=== PATIENT | female | born 1995 | race Caucasian/White ===

== ENCOUNTER 2017-06-18 11:16 | Emergency (ER) | payer MEDICAID ==
[~2017-06-18] VITALS: Ht 175.3 cm; Wt 59.3 kg
[~2017-06-18 11:16] MED LIST: ALBU2.5V11 IH; ALBU8.5H5 INH; AZIT500T5 PO; FLUT1DIS3 INH; LEVO500T47 PO; MONT10TA6 PO; PRED10TA PO; PRED20TA PO
[2017-06-18] MEDS ORDERED: SODIUM CHLORIDE 0.9% 1,000 ML IV ONE (11:48)
[2017-06-18] MEDS ORDERED: SODIUM CHLORIDE 0.9% 1,000ML IVBOLUS ONE (12:00)
[2017-06-18] MEDS ORDERED: SODIUM CHLORIDE FLUSH 10ML SYR IVF ONE (12:00)
[2017-06-18] MEDS ORDERED: ONDANSETRON 2MG/ML, 2ML IVPush ONE (12:00)
[2017-06-18] MEDS ORDERED: ONDANSETRON 2MG/ML, 2ML ONE (12:03)
[2017-06-18 12:09] LABS: HEMATOCRIT 47.1 % (34.6-47.8); WHITE BLOOD COUNT 7.5 x10^3/uL (4.5-13.2)
[2017-06-18 12:19] LABS: ASPARTATE AMINO TRANSFERASE 12 U/L (15-37); BLOOD UREA NITROGEN 16 mg/dL (7-18)
[2017-06-18 13:59] VITALS: BP 102/58
== END 2017-06-18 14:05 | disposition home or self-care (01) ==
LOC: ED 12:37
DX: R11.2 Nausea with vomiting, unspecified (principal); K21.9 Gastro-esophageal reflux disease without esophagitis; J45.909 Unspecified asthma, uncomplicated; Z90.49 Acquired absence of other specified parts of digestive tract
CPT/HCPCS: 36415; 71020; 80053; 81003; 83605; 83690; 84703; 85025; 96361; 96374; 99285; J2405; J7030

== ENCOUNTER 2017-06-24 16:09 | Emergency (ER) | payer MEDICAID ==
[~2017-06-24] VITALS: Ht 175.3 cm; Wt 61.4 kg
[2017-06-24] MEDS ORDERED: ONDANSETRON 2MG/ML, 2ML IVPush ONE (16:30)
[2017-06-24] MEDS ORDERED: SODIUM CHLORIDE FLUSH 10ML SYR IVF ONE (16:30)
[2017-06-24] MEDS ORDERED: SODIUM CHLORIDE 0.9% 1,000ML IVBOLUS ONE (16:30)
[2017-06-24] MEDS ORDERED: FAMOTIDINE 20 MG/2 ML IVP ONE (16:30)
[2017-06-24] MEDS ORDERED: ONDANSETRON 2MG/ML, 2ML ONE (16:34)
[2017-06-24] MEDS ORDERED: FAMOTIDINE 20 MG/2 ML ONE (16:34)
[2017-06-24 16:42] LABS: PATH.CAST-FLAG NOT PRESENT; SPERM-FLAG NOT PRESENT; SRC-FLAG NOT PRESENT; XTAL-FLAG NOT PRESENT; YLC-FLAG NOT PRESENT
[2017-06-24 16:54] LABS: HEMATOCRIT 47.1 % (34.6-47.8); HEMOGLOBIN 15.8 g/dL (11.7-16.4); WHITE BLOOD COUNT 10.1 x10^3/uL (4.5-13.2)
[2017-06-24 17:05] LABS: BLOOD UREA NITROGEN 9 mg/dL (7-18)
[2017-06-24] MEDS ORDERED: ALBUTEROL SULFATE 2.5 MG/3 ML ONE ×2 (17:44→17:48)
[2017-06-24 17:47] VITALS: BP 110/62
[2017-06-24] MEDS: ALBUTEROL SULFATE 2.5 MG/3 ML NPPB SCH ×2 (17:51→17:59)
== END 2017-06-24 19:01 | disposition home or self-care (01) ==
LOC: ED 16:26
DX: J20.9 Acute bronchitis, unspecified (principal); J45.909 Unspecified asthma, uncomplicated; K21.9 Gastro-esophageal reflux disease without esophagitis; Z90.49 Acquired absence of other specified parts of digestive tract
CPT/HCPCS: 36415; 71010; 80048; 81001; 82040; 84703; 85025; 87086; 94640; 96361; 96374; 96375; 99285; J2405; J7030; J7613; S0028

== ENCOUNTER 2017-08-18 19:34 | Emergency (ER) | payer MEDICAID ==
[~2017-08-18] VITALS: Ht 172.7 cm; Wt 60.2 kg
[2017-08-18 19:36] VITALS: BP 124/80
[2017-08-18] MEDS ORDERED: DIAZEPAM 5 MG TABLET ONE (20:14)
[2017-08-18] MEDS ORDERED: KETOROLAC 30 MG/1 ML ONE (20:14)
[2017-08-18] MEDS ORDERED: DIAZEPAM 5 MG TABLET PO ONE (20:30)
[2017-08-18] MEDS ORDERED: KETOROLAC 30 MG/1 ML IM ONE (20:30)
== END 2017-08-18 20:38 | disposition home or self-care (01) ==
LOC: ED 20:00
DX: S39.012A Strain of muscle, fascia and tendon of lower back, initial encounter (principal); K21.9 Gastro-esophageal reflux disease without esophagitis; J45.909 Unspecified asthma, uncomplicated; Z90.49 Acquired absence of other specified parts of digestive tract
CPT/HCPCS: 96372; 99283; J1885

== ENCOUNTER 2017-10-03 06:48 | Emergency (ER) | payer MEDICAID ==
[~2017-10-03] VITALS: Ht 175.3 cm; Wt 58.6 kg
[2017-10-03] MEDS ORDERED: ALBUTEROL/IPRATROPIUM 2.5MG/0.5MG, 3 ML NPPB ONE (07:30)
[2017-10-03] MEDS ORDERED: DEXAMETHASONE 4 MG TABLET PO ONE (07:30)
[2017-10-03] MEDS ORDERED: ALBUTEROL/IPRATROPIUM 2.5MG/0.5MG, 3 ML ONE (07:31)
[2017-10-03] MEDS ORDERED: DEXAMETHASONE 4 MG TABLET ONE (07:46)
[2017-10-03 08:14] VITALS: BP 122/66
== END 2017-10-03 08:20 | disposition home or self-care (01) ==
LOC: ED 07:08
DX: J45.41 Moderate persistent asthma with (acute) exacerbation (principal); K21.9 Gastro-esophageal reflux disease without esophagitis; J45.909 Unspecified asthma, uncomplicated; K29.70 Gastritis, unspecified, without bleeding
CPT/HCPCS: 71046; 93005; 94640; 99284; J7620

== ENCOUNTER 2017-11-01 03:52 | Emergency (ER) | payer MEDICAID ==
[~2017-11-01] VITALS: Ht 175.3 cm; Wt 62.4 kg
[2017-11-01 03:54] VITALS: BP 112/68
[2017-11-01] MEDS ORDERED: HYDROcodone/APAP 5/325 TABLET PO ONE (04:30)
[2017-11-01] MEDS ORDERED: KETOROLAC 30 MG/1 ML IM ONE (04:30)
[2017-11-01] MEDS ORDERED: HYDROcodone/APAP 5/325 TABLET ONE (04:31)
[2017-11-01] MEDS ORDERED: KETOROLAC 30 MG/1 ML ONE (04:31)
== END 2017-11-01 05:04 | disposition home or self-care (01) ==
LOC: ED 04:30
DX: M54.41 Lumbago with sciatica, right side (principal); K21.9 Gastro-esophageal reflux disease without esophagitis; Z88.8 Allergy status to other drugs, medicaments and biological substances
CPT/HCPCS: 96372; 99283; J1885

== ENCOUNTER 2017-11-09 07:54 | Emergency (ER) | payer MEDICAID ==
[~2017-11-09] VITALS: Ht 175.3 cm; Wt 52.1 kg
[2017-11-09 08:31] LABS: BASOPHILS # (AUTO) 0.03 x10^3/uL (0-0.3); BASOPHILS % (AUTO) 1 % (0-1); EOSINOPHILS % (AUTO) 3 % (1-7); LYMPHOCYTES % (AUTO) 32 % (22-44); MD NO; MEAN CORPUSCULAR HEMOGLOBIN 30.6 pg (27.0-34.8); MEAN CORPUSCULAR HGB CONC 33.6 g/dL (32.4-35.8); MEAN CORPUSCULAR VOLUME 91.2 fL (80-100); MEAN PLATELET VOLUME 7.3 fL (7.4-10.4); MONOCYTES # (AUTO) 0.35 x10^3/uL (0-1.4); MONOCYTES % (AUTO) 5 % (2-9); NEUTROPHILS # (AUTO) 3.92 x10^3/uL (1.8-8.0); NEUTROPHILS % (AUTO) 59 % (42-75); PLATELET COUNT 317 x10^3/uL (130-400); RED BLOOD COUNT 4.41 x10^6/uL (3.82-5.3); RED CELL DISTRIBUTION WIDTH 12.8 % (9.6-15.2)
[2017-11-09 08:42] LABS: MICROSCOPIC AUTO
[2017-11-09 08:51] LABS: CULTURE INDICATED? YES
[2017-11-09 08:56] VITALS: BP 117/81
== END 2017-11-09 09:12 | disposition home or self-care (01) ==
LOC: ED 09:00
DX: N39.0 Urinary tract infection, site not specified (principal); J45.909 Unspecified asthma, uncomplicated; Z90.49 Acquired absence of other specified parts of digestive tract
CPT/HCPCS: 36415; 76830; 81001; 84702; 85025; 87086; 99285

== ENCOUNTER 2018-01-09 20:51 | Emergency (ER) | payer MEDICAID ==
[~2018-01-09] VITALS: Ht 172.7 cm; Wt 65.0 kg
[2018-01-09 21:18] VITALS: BP 118/76
[2018-01-09] MEDS ORDERED: GABA300C10 PO (21:25)
[2018-01-09] MEDS ORDERED: DICL25TA PO (21:25)
[2018-01-09] MEDS ORDERED: ONDANSETRON ODT 4 MG ONE (21:34)
[2018-01-09 21:47] LABS: HCG UR SG 1.037 (1.003-1.030)
[2018-01-09] MEDS ORDERED: ONDANSETRON ODT 4 MG PO ONE (22:00)
[2018-01-09] MEDS ORDERED: PROMETHAZINE 25 MG/ML, 1ML ONE (22:29)
[2018-01-09] MEDS ORDERED: PROMETHAZINE 25 MG/ML, 1ML IM ONE (22:30)
== END 2018-01-09 23:46 | disposition home or self-care (01) ==
LOC: ED 23:15
DX: R11.2 Nausea with vomiting, unspecified (principal); B34.9 Viral infection, unspecified; K21.9 Gastro-esophageal reflux disease without esophagitis; J45.909 Unspecified asthma, uncomplicated; Z90.49 Acquired absence of other specified parts of digestive tract
CPT/HCPCS: 81025; 96372; 99283; J2550; Q0162

== ENCOUNTER → 2018-04-15 | Outpatient (CLI) | payer MEDICAID ==
[~2018-04-15] MED LIST changes: +DICL25TA PO; +GABA300C10 PO
== END | disposition home or self-care (01) ==
LOC: CFH 12:42
PROVIDERS: ATTEND Nurse Practitioner
DX: M48.061 Spinal stenosis, lumbar region without neurogenic claudication (principal)
CPT/HCPCS: 72100

== ENCOUNTER 2018-05-28 15:23 | Emergency (ER) | payer MEDICAID ==
[~2018-05-28] VITALS: Ht 172.7 cm; Wt 67.0 kg
[2018-05-28] MEDS ORDERED: ONDANSETRON ODT 4 MG ONE (15:46)
[2018-05-28 15:47] LABS: BASOPHILS # (AUTO) 0.06 x10^3/uL (0-0.1); BASOPHILS % (AUTO) 1 % (0-1); EOSINOPHILS # (AUTO) 0.29 x10^3/uL (0-0.4); EOSINOPHILS % (AUTO) 4 % (1-7); LYMPHOCYTES # (AUTO) 2.09 x10^3/uL (1-3.4); LYMPHOCYTES % (AUTO) 27 % (22-44); MD NO; MEAN CORPUSCULAR HEMOGLOBIN 30.2 pg (27.0-34.8); MEAN CORPUSCULAR HGB CONC 33.2 g/dL (32.4-35.8); MEAN CORPUSCULAR VOLUME 90.7 fL (80-100); MEAN PLATELET VOLUME 7.7 fL (7.4-10.4); MONOCYTES # (AUTO) 0.31 x10^3/uL (0.2-0.8); MONOCYTES % (AUTO) 4 % (2-9); NEUTROPHILS # (AUTO) 4.94 x10^3/uL (1.8-6.8); NEUTROPHILS % (AUTO) 64 % (42-75); PLATELET COUNT 363 x10^3/uL (130-400); RED BLOOD COUNT 4.93 x10^6/uL (3.82-5.3); RED CELL DISTRIBUTION WIDTH 14.6 % (9.6-15.2)
[2018-05-28 15:59] LABS: ALANINE AMINOTRANSFERASE 19 U/L (12-78); ALBUMIN 4.1 g/dL (3.4-5.0); ANION GAP 7 mmol/L (5-15); CALCIUM 8.7 mg/dL (8.5-10.1); CHLORIDE 107 mmol/L (98-107); CREATININE 0.88 mg/dL (0.55-1.02)
[2018-05-28] MEDS ORDERED: ONDANSETRON ODT 4 MG PO ONE (16:00)
[2018-05-28] MEDS ORDERED: SODIUM CHLORIDE FLUSH 10ML SYR IVF ONE (16:00)
[2018-05-28 16:03] LABS: ALKALINE PHOSPHATASE 61 U/L (45-117); BILIRUBIN,TOTAL 0.4 mg/dL (0.2-1.0); TOTAL PROTEIN 7.8 g/dL (6.4-8.2)
[2018-05-28 17:11] LABS: MICROSCOPIC INDICATED
[2018-05-28 17:25] LABS: CULTURE INDICATED? NO
[2018-05-28] MEDS ORDERED: KETOROLAC 30 MG/1 ML ONE (18:45)
[2018-05-28 18:56] VITALS: BP 121/75
[2018-05-28] MEDS ORDERED: KETOROLAC 30 MG/1 ML IM ONE (19:00)
== END 2018-05-28 18:58 | disposition home or self-care (01) ==
LOC: ED 15:53
DX: R10.31 Right lower quadrant pain (principal); K21.9 Gastro-esophageal reflux disease without esophagitis; J45.909 Unspecified asthma, uncomplicated; R11.2 Nausea with vomiting, unspecified; Z90.89 Acquired absence of other organs
CPT/HCPCS: 36415; 76700; 76830; 80053; 81001; 83690; 84703; 85025; 96372; 99285; J1885; Q0162

== ENCOUNTER 2018-08-10 03:21 | Emergency (ER) | payer MEDICAID ==
[~2018-08-10] VITALS: Ht 172.7 cm; Wt 69.3 kg
[2018-08-10] MEDS ORDERED: ALBUTEROL MDI (03:26)
[2018-08-10] MEDS ORDERED: ALBUTEROL SULFATE 2.5 MG/3 ML ONE (03:45)
[2018-08-10] MEDS ORDERED: ALBUTEROL SULFATE 2.5 MG/3 ML NPPB ONE (04:00)
[2018-08-10 04:15] LABS: RAPID INFLUENZA A Negative (Negative); RAPID INFLUENZA B Negative (Negative)
[2018-08-10 04:19] VITALS: BP 122/70
== END 2018-08-10 05:00 | disposition home or self-care (01) ==
LOC: ED 03:31
DX: J45.31 Mild persistent asthma with (acute) exacerbation (principal); K21.9 Gastro-esophageal reflux disease without esophagitis; Z90.89 Acquired absence of other organs
CPT/HCPCS: 71045; 87400; 94640; 99284; J7613

== ENCOUNTER 2018-08-10 14:10 | Observation (INO) | payer MEDICAID ==
[~2018-08-10] VITALS: Ht 172.7 cm; Wt 61.7 kg
[~2018-08-10 14:10] MED LIST changes: +ALBUTEROL MDI
[2018-08-10] MEDS ORDERED: methylPREDNISolone SOD SUCC 125 MG/2 ML ONE (14:46)
[2018-08-10] MEDS ORDERED: ALBUTEROL/IPRATROPIUM 2.5MG/0.5MG, 3 ML ONE (14:49)
[2018-08-10] MEDS ORDERED: ALBUTEROL SULFATE 2.5 MG/3 ML NPPB PRN ×2 (15:00→17:00)
[2018-08-10] MEDS ORDERED: methylPREDNISolone SOD SUCC 125 MG/2 ML IVP ONE (15:00)
[2018-08-10] MEDS ORDERED: SODIUM CHLORIDE FLUSH 10ML SYR IVF ONE (15:00)
[2018-08-10] MEDS ORDERED: ALBUTEROL/IPRATROPIUM 2.5MG/0.5MG, 3 ML NPPB ONE (15:00)
[2018-08-10] MEDS ORDERED: ACETAMINOPHEN 325 MG TABLET PO PRN (17:00)
[2018-08-10] MEDS ORDERED: ENALAPRILAT 1.25 MG/ML, 2ML IVPush PRN (17:00)
[2018-08-10] MEDS ORDERED: ONDANSETRON 2MG/ML, 2ML IVPush PRN (17:00)
[2018-08-10] MEDS: GUAIFENESIN 200 MG TABLET PO SCH ×2 (17:12→22:21)
[2018-08-10] MEDS: methylPREDNISolone SOD SUCC 125 MG/2 ML IVPush SCH ×2 (17:12→22:21)
[2018-08-10] MEDS: ENOXAPARIN 40 MG/0.4 ML SQ SCH (17:13)
[2018-08-10] MEDS: ALBUTEROL/IPRATROPIUM 2.5MG/0.5MG, 3 ML NPPB SCH ×2 (17:20→21:15)
[2018-08-10 17:42] VITALS: BP 127/78
[2018-08-10 18:22] LABS: MEAN CORPUSCULAR HEMOGLOBIN 29.3 pg (27.0-34.8); MEAN CORPUSCULAR HGB CONC 32.9 g/dL (32.4-35.8); MEAN CORPUSCULAR VOLUME 88.9 fL (80-100); MEAN PLATELET VOLUME 8.1 fL (7.4-10.4); PLATELET COUNT 330 x10^3/uL (130-400); RED BLOOD COUNT 5.07 x10^6/uL (3.82-5.3); RED CELL DISTRIBUTION WIDTH 15.4 % (9.6-15.2)
[2018-08-10 18:24] LABS: MD YES
[2018-08-10 18:35] LABS: ANION GAP 13 mmol/L (5-15); CALCIUM 9.2 mg/dL (8.5-10.1); CHLORIDE 107 mmol/L (98-107); CREATININE 1.01 mg/dL (0.55-1.02)
[2018-08-10 18:47] LABS: LYMPH#(MANUAL) 0.42 x10^3/uL (1-3.4); LYMPHS% (MANUAL) 4 % (22-44); MONOS% (MANUAL) 1 % (2-9); SEG#(MANUAL) 9.88 x10^3/uL (1.8-6.8); SEGS% (MANUAL) 95 % (42-75)
[2018-08-10 18:49] LABS: <PLATELET ESTIMATE> ADEQUATE; <PLT MORPHOLOGY> NORMAL PLT MORPH; ANISOCYTOSIS 1+; OVALOCYTES 1+
[2018-08-10] MEDS ORDERED: ALBUTEROL SULFATE 2.5 MG/3 ML NPPB SCH (19:00)
[2018-08-10 19:57] VITALS: BP 108/66
[2018-08-11 01:44] VITALS: BP 96/57
[2018-08-11 01:45] VITALS: BP 100/65
[2018-08-11] MEDS: ALBUTEROL/IPRATROPIUM 2.5MG/0.5MG, 3 ML NPPB SCH ×6 (02:59→23:05)
[2018-08-11 04:56] LABS: MEAN CORPUSCULAR HEMOGLOBIN 29.7 pg (27.0-34.8); MEAN CORPUSCULAR HGB CONC 33.8 g/dL (32.4-35.8); MEAN CORPUSCULAR VOLUME 88.1 fL (80-100); MEAN PLATELET VOLUME 7.9 fL (7.4-10.4); PLATELET COUNT 300 x10^3/uL (130-400); RED BLOOD COUNT 4.51 x10^6/uL (3.82-5.3)
[2018-08-11 05:08] LABS: ALBUMIN 3.8 g/dL (3.4-5.0); ANION GAP 13 mmol/L (5-15); CALCIUM 8.6 mg/dL (8.5-10.1); CHLORIDE 109 mmol/L (98-107)
[2018-08-11 05:14] LABS: ALANINE AMINOTRANSFERASE 18 U/L (12-78); ALKALINE PHOSPHATASE 56 U/L (45-117); BILIRUBIN,TOTAL 0.3 mg/dL (0.2-1.0); CREATININE 1.15 mg/dL (0.55-1.02); TOTAL PROTEIN 7.1 g/dL (6.4-8.2)
[2018-08-11] MEDS: DIPHENHYDRAMINE 25 MG CAPSULE PO PRN (05:43)
[2018-08-11] MEDS: GUAIFENESIN 200 MG TABLET PO SCH ×4 (05:44→21:04)
[2018-08-11] MEDS: methylPREDNISolone SOD SUCC 125 MG/2 ML IVPush SCH ×4 (05:44→23:16)
[2018-08-11 06:21] LABS: BASOPHILS % (AUTO) 0 % (0-1); EOSINOPHILS % (AUTO) 0 % (1-7); LYMPHOCYTES # (AUTO) 0.35 x10^3/uL (1-3.4); LYMPHOCYTES % (AUTO) 4 % (22-44); MD SCAN; MONOCYTES # (AUTO) 0.03 x10^3/uL (0.2-0.8); MONOCYTES % (AUTO) 0 % (2-9); NEUTROPHILS # (AUTO) 8.17 x10^3/uL (1.8-6.8); NEUTROPHILS % (AUTO) 96 % (42-75)
[2018-08-11 07:00] VITALS: BP 124/69
[2018-08-11 12:32] VITALS: BP 121/53
[2018-08-11] MEDS: ENOXAPARIN 40 MG/0.4 ML SQ SCH (16:15)
[2018-08-11 19:11] VITALS: BP 117/73
[2018-08-12 01:25] VITALS: BP 137/53
[2018-08-12] MEDS: GUAIFENESIN 200 MG TABLET PO SCH ×2 (05:02→10:05)
[2018-08-12] MEDS: DIPHENHYDRAMINE 25 MG CAPSULE PO PRN ×2 (05:02→10:05)
[2018-08-12] MEDS: methylPREDNISolone SOD SUCC 125 MG/2 ML IVPush SCH ×2 (05:02→10:04)
[2018-08-12] MEDS: ALBUTEROL/IPRATROPIUM 2.5MG/0.5MG, 3 ML NPPB SCH ×2 (06:00→10:00)
[2018-08-12 06:57] VITALS: BP 107/49
[2018-08-12] MEDS ORDERED: METH4TAB2 PO (10:23)
== END 2018-08-12 11:00 | disposition home or self-care (01) ==
LOC: ED 14:45 → INTOOBSV 16:14 → EDIP 16:14 → 3NE 16:55 → DCLOUNGE 08-12 10:59
PROVIDERS: ADMIT Internal Medicine; ATTEND Family Medicine
DX: J45.41 Moderate persistent asthma with (acute) exacerbation (principal); J96.01 Acute respiratory failure with hypoxia; Z82.5 Family history of asthma and other chronic lower respiratory diseases; Z90.49 Acquired absence of other specified parts of digestive tract; Z90.89 Acquired absence of other organs; Z88.8 Allergy status to other drugs, medicaments and biological substances
CPT/HCPCS: 36415; 80048; 80053; 83735; 85025; 94640; 96372; 96374; 96376; 99285; G0378; J1650; J2930; J7620; Q0163

== ENCOUNTER 2018-08-25 21:49 | Emergency (ER) | payer MEDICAID ==
[~2018-08-25] VITALS: Ht 203.2 cm; Wt 68.0 kg
[~2018-08-25 21:49] MED LIST changes: +METH4TAB2 PO
[2018-08-25 21:53] VITALS: BP 101/71
[2018-08-25] MEDS ORDERED: ONDANSETRON 2MG/ML, 2ML ONE (22:08)
[2018-08-25] MEDS ORDERED: MORPHINE SULFATE 4 MG/ML, 1ML ONE (22:08)
[2018-08-25 22:19] LABS: BASOPHILS # (AUTO) 0.04 x10^3/uL (0-0.1); BASOPHILS % (AUTO) 0 % (0-1); EOSINOPHILS # (AUTO) 0.04 x10^3/uL (0-0.4); EOSINOPHILS % (AUTO) 0 % (1-7); LYMPHOCYTES # (AUTO) 1.51 x10^3/uL (1-3.4); LYMPHOCYTES % (AUTO) 12 % (22-44); MD NO; MEAN CORPUSCULAR HEMOGLOBIN 29.1 pg (27.0-34.8); MEAN CORPUSCULAR HGB CONC 33.6 g/dL (32.4-35.8); MEAN CORPUSCULAR VOLUME 86.7 fL (80-100); MEAN PLATELET VOLUME 7.5 fL (7.4-10.4); MONOCYTES # (AUTO) 0.44 x10^3/uL (0.2-0.8); MONOCYTES % (AUTO) 3 % (2-9); NEUTROPHILS # (AUTO) 10.98 x10^3/uL (1.8-6.8); NEUTROPHILS % (AUTO) 84 % (42-75); PLATELET COUNT 347 x10^3/uL (130-400); RED BLOOD COUNT 5.07 x10^6/uL (3.82-5.3); RED CELL DISTRIBUTION WIDTH 14.9 % (9.6-15.2)
[2018-08-25 22:30] LABS: ALANINE AMINOTRANSFERASE 23 U/L (12-78); ANION GAP 7 mmol/L (5-15); CHLORIDE 105 mmol/L (98-107); CREATININE 0.93 mg/dL (0.55-1.02)
[2018-08-25] MEDS ORDERED: SODIUM CHLORIDE FLUSH 10ML SYR IVF ONE (22:30)
[2018-08-25] MEDS ORDERED: ONDANSETRON 2MG/ML, 2ML IVPush ONE (22:30)
[2018-08-25] MEDS ORDERED: MORPHINE SULFATE 4 MG/ML, 1ML IVPush PRN (22:30)
[2018-08-25 22:32] LABS: ALKALINE PHOSPHATASE 65 U/L (45-117); BILIRUBIN,TOTAL 0.4 mg/dL (0.2-1.0); TOTAL PROTEIN 7.9 g/dL (6.4-8.2)
[2018-08-25 22:34] LABS: MICROSCOPIC INDICATED
[2018-08-25 22:35] LABS: CULTURE INDICATED? YES; HCG UR SG 1.017 (1.003-1.030)
[2018-08-25] MEDS ORDERED: CEFTRIAXONE PMX 1GM/50ML 50 ML ONE (22:48)
[2018-08-25] MEDS ORDERED: CEFTRIAXONE 1,000 MG in SODIUM CHLORIDE 0.9% 50 ML IVPB ONE (23:00)
== END 2018-08-25 23:28 | disposition home or self-care (01) ==
LOC: ED 22:57
DX: N10 Acute pyelonephritis (principal); K21.9 Gastro-esophageal reflux disease without esophagitis; J45.909 Unspecified asthma, uncomplicated
CPT/HCPCS: 36415; 74176; 80053; 81001; 81025; 83690; 85025; 87077; 87086; 96365; 96375; 99284; J0696; J2405; 87186

== ENCOUNTER → 2018-11-11 | Outpatient (CLI) | payer MEDICAID, OTHER ==
[~2018-11-11] MED LIST changes: +GADOBUTROL 7.5 MMOL/7.5 ML VIAL ONE
== END | disposition home or self-care (01) ==
LOC: CFH 15:09
PROVIDERS: ATTEND Neurological Surgery
DX: M51.16 Intervertebral disc disorders with radiculopathy, lumbar region (principal)
CPT/HCPCS: 72158; A9585

== ENCOUNTER 2018-11-30 03:30 | Emergency (ER) | payer OTHER, MEDICAID ==
[~2018-11-30] VITALS: Ht 172.7 cm; Wt 67.0 kg
[~2018-11-30 03:30] MED LIST changes: -GADOBUTROL 7.5 MMOL/7.5 ML VIAL ONE
[2018-11-30 03:33] VITALS: BP 101/67
[2018-11-30] MEDS ORDERED: DIPHENHYDRAMINE 25 MG CAPSULE ONE (04:22)
[2018-11-30] MEDS ORDERED: METHOCARBAMOL 750 MG TABLET ONE (04:22)
[2018-11-30] MEDS ORDERED: HYDROcodone/APAP 5/325 TABLET ONE (04:23)
[2018-11-30] MEDS ORDERED: METHOCARBAMOL 750 MG TABLET PO ONE (04:30)
[2018-11-30] MEDS ORDERED: HYDROcodone/APAP 5/325 TABLET PO ONE (04:30)
[2018-11-30] MEDS ORDERED: DIPHENHYDRAMINE 25 MG CAPSULE PO ONE (04:30)
== END 2018-11-30 04:45 | disposition home or self-care (01) ==
LOC: ED 04:10
DX: G89.29 Other chronic pain (principal); M54.5 Low back pain; M54.16 Radiculopathy, lumbar region; K21.9 Gastro-esophageal reflux disease without esophagitis; J45.909 Unspecified asthma, uncomplicated
CPT/HCPCS: 99284; J7512; Q0163

== ENCOUNTER 2019-02-24 15:20 | Emergency (ER) | payer MEDICAID, OTHER ==
[~2019-02-24] VITALS: Ht 175.3 cm; Wt 63.1 kg
[2019-02-24 15:43] VITALS: BP 125/75
[2019-02-24] MEDS ORDERED: DIAZEPAM 5 MG TABLET ONE (17:19)
[2019-02-24] MEDS ORDERED: DIAZEPAM 5 MG TABLET PO ONE (17:30)
== END 2019-02-24 17:41 | disposition home or self-care (01) ==
LOC: ED 17:35
DX: G89.29 Other chronic pain (principal); M54.5 Low back pain; M51.36 Other intervertebral disc degeneration, lumbar region; M54.16 Radiculopathy, lumbar region
CPT/HCPCS: 72110; 99283

== ENCOUNTER 2020-03-03 20:48 | Emergency (ER) | payer MEDICAID ==
[~2020-03-03] VITALS: Ht 175.3 cm; Wt 57.7 kg
[~2020-03-03 20:48] MED LIST changes: +AZIT500T10 PO; -AZIT500T5 PO
[2020-03-03 20:51] VITALS: BP 127/79
== END 2020-03-03 21:48 | disposition home or self-care (01) ==
LOC: ED 21:30
DX: M54.5 Low back pain (principal); G89.29 Other chronic pain; M25.551 Pain in right hip; M25.552 Pain in left hip; R20.2 Paresthesia of skin; K21.9 Gastro-esophageal reflux disease without esophagitis; J45.909 Unspecified asthma, uncomplicated
CPT/HCPCS: 99283

== ENCOUNTER 2020-06-01 19:48 | Emergency (ER) | payer MEDICAID ==
[~2020-06-01] VITALS: Ht 175.3 cm; Wt 58.3 kg
--- NOTE | 2020-06-01 20:15 | NUR ---
DR LAKHANI BS FOR EXAM. PT C/O LOW LEFT BACK PAIN, WEAKNESS & NUMBNESS RADIATING DOWN LEG. PT WAS AMBULATORY INTO ED. DENIED LOSS OF BOWEL, BLADDER. ABLE TO MOVE ALL EXTREMETIES VOLUNTARILY. REPORTS SOME NUMBNESS TO LT LAT THIGH. HAS PRESCRIPTION PAIN MEDICINE "BUT I DON'T TAKE IT BECAUSE IT GIVES ME A MIGRAINE", DOESN'T RECALL RX NAME. TAKES IBUPROFEN FOR PAIN, DOES YOGA. HAD MRI 2-3 MONTHS AGO. HAS MEDICAL APPT PENDING ON 06/06
--- NOTE | 2020-06-01 20:34 | NUR ---
TOOK IBUPROFEN 800MG THIS AM.
[2020-06-01 20:35] VITALS: BP 117/78
[2020-06-01] MEDS ORDERED: IBUP-1222 PO (20:35)
== END 2020-06-01 21:15 | disposition home or self-care (01) ==
LOC: ED 20:47
DX: M54.16 Radiculopathy, lumbar region (principal)
CPT/HCPCS: 99283

== ENCOUNTER 2020-10-17 12:42 | Emergency (ER) | payer MEDICAID ==
[~2020-10-17] VITALS: Ht 175.3 cm; Wt 64.0 kg
[~2020-10-17 12:42] MED LIST changes: +IBUP-1222 PO
--- NOTE | 2020-10-17 12:55 | NUR ---
COAL DIGGER: NO ANSWER
[2020-10-17 13:01] VITALS: BP 107/70
--- NOTE | 2020-10-17 14:40 | NUR ---
PRINT ROOM WORKER: PT TO ROOM FROM LOBBY
--- NOTE | 2020-10-17 14:53 | NUR ---
Jair LEE at bedside to evaluate pt.
[2020-10-17] MEDS ORDERED: OXYcodone/APAP 5/325MG TABLET PO ONE (15:00)
[2020-10-17] MEDS ORDERED: KETOROLAC 30 MG/1 ML IM ONE (15:00)
[2020-10-17] MEDS ORDERED: DIAZEPAM 5 MG TABLET PO ONE ×2 (15:00→16:30)
[2020-10-17] MEDS ORDERED: DIAZEPAM 5 MG TABLET ONE ×2 (15:02→16:21)
[2020-10-17] MEDS ORDERED: KETOROLAC 30 MG/1 ML ONE (15:02)
[2020-10-17] MEDS ORDERED: OXYcodone/APAP 5/325MG TABLET ONE (15:02)
--- NOTE | 2020-10-17 15:10 | NUR ---
Pt medicated per MAR, denies other needs.
--- NOTE | 2020-10-17 15:58 | NUR ---
Reassessed pt for pain after med intervention. Pt states that pain has "decreased but still there" and rates pain a 7/10. Gave patient a warm blanket for comfort measures.
--- NOTE | 2020-10-17 16:29 | NUR ---
Pt sitting up in bed on phone and NADN, states that pain is still present but better than before.
--- NOTE | 2020-10-17 16:58 | NUR ---
TASK RN: DC EDUCATION PROVIDED, PT DEMONSTRATES UNDERSTANDING. PT AMBULATED STEADILY TO DC WITH RN. BOYFRIEND TO TRANSPORT PT HOME.
== END 2020-10-17 17:00 | disposition home or self-care (01) ==
LOC: ED 16:45
DX: S39.012A Strain of muscle, fascia and tendon of lower back, initial encounter (principal); G89.11 Acute pain due to trauma; R25.2 Cramp and spasm; K21.9 Gastro-esophageal reflux disease without esophagitis; J45.909 Unspecified asthma, uncomplicated; Z90.49 Acquired absence of other specified parts of digestive tract; Z90.89 Acquired absence of other organs; X58.XXXA Exposure to other specified factors, initial encounter; Y93.89 Activity, other specified; Y92.89 Other specified places as the place of occurrence of the external cause; Y99.8 Other external cause status
CPT/HCPCS: 96372; 99284; J1885

== ENCOUNTER 2020-11-08 16:45 | Emergency (ER) | payer MEDICAID ==
[~2020-11-08] VITALS: Ht 175.3 cm; Wt 63.6 kg
[2020-11-08] MEDS ORDERED: KETOROLAC 30 MG/1 ML ONE (17:26)
[2020-11-08] MEDS ORDERED: LIDODERM 5% PATCH TD ONE ×2 (17:26→17:30)
[2020-11-08] MEDS ORDERED: DIAZEPAM 5 MG/ML, 2ML ONE (17:26)
[2020-11-08] MEDS ORDERED: ACETAMINOPHEN 500 MG TABLET ONE (17:27)
[2020-11-08] MEDS ORDERED: DIAZEPAM 5 MG/ML, 2ML IV ONE (17:30)
[2020-11-08] MEDS ORDERED: ACETAMINOPHEN 500 MG TABLET PO ONE (17:30)
[2020-11-08] MEDS ORDERED: KETOROLAC 30 MG/1 ML IVPush ONE (17:30)
[2020-11-08 18:53] VITALS: BP 100/70
== END 2020-11-08 18:58 | disposition home or self-care (01) ==
LOC: ED 18:00
DX: S39.012A Strain of muscle, fascia and tendon of lower back, initial encounter (principal); K21.9 Gastro-esophageal reflux disease without esophagitis; J45.909 Unspecified asthma, uncomplicated; Z90.89 Acquired absence of other organs; X58.XXXA Exposure to other specified factors, initial encounter; Y93.89 Activity, other specified; Y92.89 Other specified places as the place of occurrence of the external cause; Y99.8 Other external cause status
CPT/HCPCS: 36415; 84703; 96374; 96375; 99284; J1885; J3360

== ENCOUNTER 2020-12-21 11:49 | Outpatient (CLI) | payer MEDICAID | END 2020-12-21 23:59 | disposition home or self-care (01) | LOC: CFH 11:49 | PROVIDERS: ATTEND Physician Assistant Surgical | DX: Z02.9 Encounter for administrative examinations, unspecified (principal) ==

== ENCOUNTER → 2020-12-21 | Outpatient (CLI) | payer MEDICAID, OTHER | END | disposition home or self-care (01) | LOC: CFH 11:57 | PROVIDERS: ATTEND Physician Assistant Surgical | DX: M51.27 Other intervertebral disc displacement, lumbosacral region (principal); M48.061 Spinal stenosis, lumbar region without neurogenic claudication; M51.36 Other intervertebral disc degeneration, lumbar region | CPT/HCPCS: 72120; 72148 ==